=== PATIENT | male | born 1995 | race Asian ===

== ENCOUNTER 2019-08-22 04:34 | Emergency (ER) | payer SELFPAY ==
[~2019-08-22] VITALS: Ht 170 cm; Wt 63.0 kg
[2019-08-22] MEDS ORDERED: diphenhydrAMINE 50 MG/ML INJ (BENADRYL) IVP ONE (04:45)
[2019-08-22] MEDS ORDERED: LORATADINE (CLARITIN) 10 MG TAB PO ONE (04:45)
[2019-08-22] MEDS ORDERED: FAMOTIDINE 20MG/2ML IV (PEPCID) IVP ONE (04:45)
--- NOTE | 2019-08-22 04:49 | ED Integumentary General ---
General Stated Complaint: RASH ALL OVER Source: patient Exam Limitations: no limitations History of Present Illness Date Seen by Provider: Aug 22, 2019 Time Seen by Provider: 04:38 Initial Comments Patient presents to ER by private conveyance with chief complaint of right red itchy rash starting on his left wrist and spreading across to his trunk and back. He did eat shrimp last night at [employer]. He said the rash started up around 2:00. He is not taking anything for it. He is does not have a history of urticaria or allergies to any medications foods etc. He does not follow with a primary care doctor and does not have any known medical history. He is here as a student. He denies any fevers, chills, discharge, nausea or vomiting. Allergies and Home Medications Allergies Coded Allergies: No Known Drug Allergies (Unverified , 08/22/19) Patient Home Medication List Home Medication List Reviewed: Yes Review of Systems Review of Systems Constitutional: No chills, No diaphoresis EENTM: No ear discharge, No ear pain Respiratory: No cough, No short of breath, No stridor, No wheezing Cardiovascular: No chest pain, No edema Gastrointestinal: No abdominal pain, No nausea Genitourinary: No discharge, No dysuria Musculoskeletal: No back pain, No joint pain All Other Systems Reviewed Negative Unless Noted: Yes Past Nxoyids-Zgbewp-Ckndzx Hx Patient Social History Alcohol Use: Denies Use Recreational Drug Use: No Smoking Status: Never a Smoker Recent Foreign Travel: No Contact w/Someone Who Travel: No Physical Exam Vital Signs Vital Signs - First Documented 08/22/19 04:36 Temp 35.6 Pulse 83 Resp 16 B/P (MAP) 131/88 (102) Pulse Ox 100 Capillary Refill : General Appearance: WD/WN, mild distress HEENT: PERRL/EOMI, pharynx normal Neck: full range of motion, normal inspection Cardiovascular: normal peripheral pulses, regular rate, rhythm, no edema Respiratory: no respiratory distress, no accessory muscle use Gastrointestinal: normal bowel sounds, non tender Neurologic/Psychiatric: alert, normal mood/affect, oriented x 3 Skin: rash (bright red blanchable wheals and hives over her bilateral upper extremities trunk neck and part of his head.) Progress/Results/Core Measures Results/Orders My Orders Orders - JADYN PITTS Diphenhydramine Injection (Benadryl Inje (08/22/19 04:45) Loratadine Tablet (Claritin Tablet) (08/22/19 04:45) Famotidine Injection (Pepcid Injection) (08/22/19 04:45) Ed Iv/Invasive Line Start (08/22/19 04:42) Medications Given in ED Current Medications Medications Dose Ordered Sig/Kelli Route Start Time Stop Time Status Last Admin Dose Admin Diphenhydramine HCl 25 mg ONCE ONCE IVP 08/22/19 04:45 08/22/19 04:46 DC 08/22/19 04:48 25 MG Famotidine 20 mg ONCE ONCE IVP 08/22/19 04:45 08/22/19 04:46 DC 08/22/19 04:48 20 MG Loratadine 10 mg ONCE ONCE PO 08/22/19 04:45 08/22/19 04:46 DC 08/22/19 05:03 10 MG Vital Signs/I&O 08/22/19 04:36 Temp 35.6 Pulse 83 Resp 16 B/P (MAP) 131/88 (102) Pulse Ox 100 Progress Progress Note #1: Time: 04:47 Progress Note Aseptic vital signs with urticaria. Give him some IV Benadryl and Pepcid and a tablet of loratadine. Plan to observe for short while. 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 His itching is under control and he was sleeping softly. He is ready to go home so were going to allow him to go home on antihistamines with return precautions and instructions to follow-up with primary care as needed. Departure Impression Primary Impression: Urticaria of entire body Disposition: 01 HOME, SELF-CARE Condition: Improved Departure-Patient Inst. Decision time for Depature: 05:35 Referrals: RANDY YATES MD Patient Instructions: Hives (DC) Add. Discharge Instructions: Avoid shellfish. Follow-up with a primary care doctor or with the [facility] (Dr. Yates) if you wish to further explore your potential allergies. Follow-up with your doctor sooner if your symptoms persist for more than a few days to discuss of a course of steroids might be in order. For the next few days as long as you're having itching or rash you should take 10 mg of loratadine or cetirizine once or twice daily. While you're taking the loratadine/cetirizine you should also consider taking famotidine 20 mg twice a day or ranitidine 150 mg twice a day. You may take one to 2 tablets of Benadryl every 6 hours as needed to control breakthrough itching however this will cause drowsiness. If you begin to have shortness of breath, wheezing or stridor then you should return to the nearest ER immediately. Keep your skin moisturized daily with a hypoallergenic, unscented cream or ointment such as Nutraderm, CeraVe, Eucerin, etc. Work/School Note: School/Childcare Release Date Seen in the Emergency Department: Aug 22, 2019 Time Dismissed from Emergency Department: 05:38 Return to School: Aug 23, 2019 Restrictions: No Restrictions JADYN PITTS Aug 22, 2019 04:49 POS
[2019-08-22 05:55] VITALS: BP 128/89
== END 2019-08-22 05:58 | disposition home or self-care (01) ==
LOC: ER 04:37
DX: L50.9 Urticaria, unspecified (principal)

== ENCOUNTER 2019-09-01 04:22 | Emergency (ER) | payer OTHER ==
[~2019-09-01] VITALS: Ht 170 cm; Wt 63.0 kg
[2019-09-01] MEDS ORDERED: FAMOTIDINE 20 MG (PEPCID) TABLET PO ONE (04:45)
[2019-09-01] MEDS ORDERED: LORATADINE (CLARITIN) 10 MG TAB PO ONE (04:45)
[2019-09-01] MEDS ORDERED: diphenhydrAMINE 50 MG/ML INJ (BENADRYL) IM ONE (04:45)
--- NOTE | 2019-09-01 04:45 | ED Integumentary General ---
General Chief Complaint: Allergic Reaction Stated Complaint: HIVES Source: patient Exam Limitations: no limitations History of Present Illness Date Seen by Provider: Sep 01, 2019 Time Seen by Provider: 04:19 Initial Comments Patient presents to ER by private conveyance with chief complaint is the second time in one week of hives starting up just prior to arrival. He does not know what the allergen is. No new medications soaps detergents Cassandra etc. He's having no stridor or wheezing difficulty breathing. He has not taken anything. No other significant medical history. No pain nausea vomiting fever chills Allergies and Home Medications Allergies Coded Allergies: No Known Drug Allergies (Unverified , 08/22/19) Patient Home Medication List Home Medication List Reviewed: Yes Review of Systems Review of Systems Constitutional: No chills, No diaphoresis EENTM: No ear discharge, No ear pain Respiratory: No cough, No short of breath Cardiovascular: No edema, No Hx of Intervention Gastrointestinal: No abdominal pain, No nausea Genitourinary: No discharge, No dysuria Skin: see HPI All Other Systems Reviewed Negative Unless Noted: Yes Past Lpduyzv-Uesbjd-Uduymx Hx Patient Social History Alcohol Use: Denies Use Recreational Drug Use: No Smoking Status: Never a Smoker 2nd Hand Smoke Exposure: No Recent Foreign Travel: No Contact w/Someone Who Travel: No Physical Exam Vital Signs Capillary Refill : General Appearance: WD/WN, no apparent distress HEENT: PERRL/EOMI, pharynx normal Neck: full range of motion, normal inspection Cardiovascular: regular rate, rhythm, no edema Respiratory: lungs clear, no respiratory distress, no accessory muscle use Neurologic/Psychiatric: alert, normal mood/affect, oriented x 3 Skin: rash (I, blanchable erythema with wheals and pruritus) Progress/Results/Core Measures Results/Orders My Orders Orders - JADYN PITTS Loratadine Tablet (Claritin Tablet) (09/01/19 04:45) Famotidine Tablet (Pepcid Tablet) (09/01/19 04:45) Diphenhydramine Injection (Benadryl Inje (09/01/19 04:45) Progress Progress Note : Time: 04:36 Progress Note We have instructed him that if this happens again then he should take Benadryl, Pepcid and loratadine. IM Benadryl 50 mg, by mouth Pepcid and loratadine. No evidence of airway d isturbance. Departure Impression Primary Impression: Full body hives Disposition: 01 HOME, SELF-CARE Condition: Stable Departure-Patient Inst. Referrals: NO,LOCAL PHYSICIAN (PCP) Primary Care Physician RANDY YATES MD Patient Instructions: Hives (DC) Add. Discharge Instructions: Drink plenty of water and use hypoallergenic, non-scented skin ointments such as CeraVe, Nutraderm, Eucerin etc. Take loratadine or cetirizine 10 mg daily until the rash goes away. Take Pepcid 20 mg twice daily until the rash goes away. Take Benadryl 25-50 mg every 6 hours as needed for itching or rash. Return to the nearest ER if you develop difficulty breathing. Please schedule a follow-up appointment with the [facility]. All discharge instructions reviewed with patient and/or family. Voiced understanding. Copy Copies To 1: RANDY YATES MD, TITUS J Sep 01, 2019 04:45 POS
[2019-09-01 05:09] VITALS: BP 135/68
== END 2019-09-01 05:10 | disposition home or self-care (01) ==
LOC: EDUNIT# 04:22 → ER 04:26
DX: L50.9 Urticaria, unspecified (principal)
CPT/HCPCS: 96372; 99284